=== PATIENT | female | born 1990 | race Caucasian/White ===

== ENCOUNTER 2018-08-25 08:00 | Outpatient (CLI) | payer OTHER ==
[2018-08-25 19:04] LABS: BASOPHILS % (AUTO) 0.5 %; EOSINOPHILS # (AUTO) 0.1 10^3/uL (0.0-0.7); EOSINOPHILS % (AUTO) 1.9 %; HGB - HEMOGLOBIN 13.3 g/dL (12.0-16.0); LYMPHOCYTES # (AUTO) 1.6 10^3/uL (1.5-3.5); LYMPHOCYTES % (AUTO) 26.2 %; MEAN CORPUSCULAR HEMOGLOBIN 30.1 pg (27.0-31.0); MEAN CORPUSCULAR HGB CONC 32.9 g/dL (32.0-36.0); MEAN CORPUSCULAR VOLUME 91.5 fL (81.0-99.0); MEAN PLATELET VOLUME 9.5 fL (7.9-10.8); MONOCYTES # (AUTO) 0.5 10^3/uL (0.0-1.0); MONOCYTES % (AUTO) 7.6 %; NEUTROPHILS # (AUTO) 3.8 10^3/uL (1.5-6.6); NEUTROPHILS % (AUTO) 63.8 %; PLT - PLATELET COUNT 160 10^3/uL (130-450); RED BLOOD COUNT 4.41 10^6/uL (4.20-5.40); RED CELL DISTRIBUTION WIDTH 13.7 % (12.0-15.0)
[2018-08-26 09:54] LABS: CARBON DIOXIDE - CO2 26 mmol/L (21-32); CHLORIDE 104 mmol/L (101-111); SODIUM 142 mmol/L (135-145)
[2018-08-26 10:00] LABS: BILIRUBIN,TOTAL 0.7 mg/dL (0.2-1.0); BUN - BLOOD UREA NITROGEN 18 mg/dL (6-20); CALCIUM 9.5 mg/dL (8.5-10.3); CREATININE 1.2 mg/dL (0.4-1.0); GFR - MDRD 54 (>89); GLUCOSE 83 mg/dL (70-100)
[2018-08-26 10:01] LABS: ALBUMIN 4.3 g/dL (3.2-5.5); ALBUMIN/GLOBULIN RATIO 1.5 (1.0-2.2); ALKALINE PHOSPHATASE 43 IU/L (42-121); ALT ALANINE AMINOTRANSFERASE 16 IU/L (10-60); AST ASPARTATE AMINOTRANSFERASE 23 IU/L (10-42); TOTAL PROTEIN 7.1 g/dL (6.7-8.2)
[2018-08-26 10:10] LABS: CHOL/HDL RATIO 3.1 (<4.4); CHOLESTEROL 156 mg/dL; HDL CHOLESTEROL 51 mg/dL; LDL CHOLESTEROL,CALCULATED 73 mg/dL; LDL/HDL RATIO 1.4 (<4.4); VLDL CHOLESTEROL 32 mg/dL
== END 2018-08-25 08:01 | disposition home or self-care (01) ==
LOC: LAB.WCP 08:00
PROVIDERS: ATTEND Physician Assistant
DX: Z00.00 Encounter for general adult medical examination without abnormal findings (principal); Z83.3 Family history of diabetes mellitus
CPT/HCPCS: 36415; 80053; 80061; 81599; 83036; 83721; 84443; 85025

== ENCOUNTER 2018-08-31 08:00 | Outpatient (CLI) | payer OTHER ==
[2018-08-31 19:38] LABS: CALCIUM 9.6 mg/dL (8.5-10.3); CREATININE 0.8 mg/dL (0.4-1.0)
== END 2018-08-31 08:01 | disposition home or self-care (01) ==
LOC: LAB.WCP 08:00
PROVIDERS: ATTEND Physician Assistant
DX: R79.89 Other specified abnormal findings of blood chemistry (principal)
CPT/HCPCS: 36415; 80048

== ENCOUNTER 2018-09-09 16:24 | Outpatient (CLI) | payer OTHER ==
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
== END 2018-09-09 16:25 | disposition home or self-care (01) ==
LOC: DI 16:24
PROVIDERS: ATTEND Physician Assistant
DX: G43.909 Migraine, unspecified, not intractable, without status migrainosus (principal); S15.20 Unspecified injury of external jugular vein; Z87.820 Personal history of traumatic brain injury
CPT/HCPCS: 70551; 93880

== ENCOUNTER 2019-06-03 14:22 | Outpatient (CLI) | payer OTHER ==
--- NOTE | 2019-06-04 06:46 | XRAY Report ---
Reason: WRIST PAIN, LEFT Procedure Date: 06/03/2019 Accession Number: [id number] / [id number] Procedure: XRN - Wrist 3 View LT CPT Code: Final Report FULL RESULT: EXAM: LEFT WRIST RADIOGRAPHY EXAM DATE: 06/03/2019 02:45 PM. CLINICAL HISTORY: WRIST PAIN, LEFT. COMPARISON: FOREARM LT 06/03/2019 2:47 PM. TECHNIQUE: 3 views. FINDINGS: Bones: Orthopedic fixation hardware at left distal radius without evidence of hardware failure. Evidence of healed distal radial and ulnar fractures. No definite acute fractures or suspicious bone lesions. Joints: No subluxation or dislocation. Mild widening of scapholunate distance. Soft Tissues: Possible mild soft tissue swelling. IMPRESSION: 1. No acute fracture. 2. Healed distal radial and ulnar fractures with ORIF of left distal radius. 3. Mild widening of the scapholunate distance, probably chronic. 4. Possible mild swelling. RADIA
--- NOTE | 2019-06-04 06:48 | XRAY Report ---
Reason: FOREARM PAIN, LEFT Procedure Date: 06/03/2019 Accession Number: [id number] / [id number] Procedure: XRN - Forearm LT CPT Code: Final Report FULL RESULT: EXAM: LEFT FOREARM RADIOGRAPHY EXAM DATE: 06/03/2019 02:45 PM. CLINICAL HISTORY: FOREARM PAIN, LEFT. COMPARISON: WRIST 3 VIEW LT 06/03/2019 2:50 PM. TECHNIQUE: 2 views. FINDINGS: Bones: No acute fractures or bone lesions. Healed distal radial and ulnar fractures with orthopedic fixation of distal radius. No evidence of hardware failure. Joints: Normal alignment at wrist and elbow. Possible mild radiocarpal joint space narrowing. Mild widening of scapholunate distance. Soft Tissues: Possible mild swelling. IMPRESSION: 1. No acute fractures. 2. Healed distal radial and ulnar fractures with orthopedic hardware at distal radius. 3. Mild widening of scapholunate distance and possible mild radiocarpal joint space narrowing. 4. Possible mild swelling. RADIA
== END 2019-06-03 14:23 | disposition home or self-care (01) ==
LOC: DI.N 14:22
PROVIDERS: ATTEND Physician Assistant
DX: M79.632 Pain in left forearm (principal); M25.532 Pain in left wrist

== ENCOUNTER 2020-08-07 08:00 | Outpatient (CLI) | payer BC ==
[2020-08-08 11:52] LABS: MUDS CUTOFF CONCENTRATIONS CUTOFF CONC BELOW:
[2020-08-08 12:02] LABS: BILIRUBIN,URINE NEGATIVE (NEGATIVE); GLUCOSE, URINE (UA) NEGATIVE (NEGATIVE); KETONES,URINE (UA) NEGATIVE (NEGATIVE); LEUKOCYTE ESTERASE, URINE SMALL (NEGATIVE); NITRITE,URINE NEGATIVE (NEGATIVE); OCCULT BLOOD,URINE NEGATIVE (NEGATIVE); PROTEIN,URINE NEGATIVE (NEGATIVE); UROBILINOGEN,URINE 0.2 (NORMAL) E.U./dL (NORMAL)
[2020-08-08 12:11] LABS: AMORPHOUS SEDIMENT,UR Marked /LPF; BACTERIA,URINE Moderate /HPF (None Seen); CLARITY,URINE CLOUDY (CLEAR); RBC,URINE 0-5 /HPF (0-5); SQUAMOUS EPITHELIAL CELL,UR FEW Squamous (<= Few); WBC,URINE 0-3 /HPF (0-5)
[2020-08-08 12:12] LABS: AMPHETAMINE SCREEN,URINE NEGATIVE (NEGATIVE); BARBITURATE SCREEN,UR NEGATIVE (NEGATIVE); BENZODIAZEPINES SCREEN, URINE NEGATIVE (NEGATIVE); COCAINE SCREEN URINE NEGATIVE (NEGATIVE); METHADONE SCREEN, URINE NEGATIVE (NEGATIVE); METHAMPHETAMINES SCREEN, URINE NEGATIVE (NEGATIVE); OPIATE SCREEN, URINE NEGATIVE (NEGATIVE); OXYCODONE SCREEN, URINE NEGATIVE (NEGATIVE); PROPOXYPHENE SCREEN, URINE NEGATIVE (NEGATIVE); THC CANNABINOID SCREEN, URINE NEGATIVE (NEGATIVE); TRICYCLIC ANTIDEPRESSANT,URINE NEGATIVE (NEGATIVE)
== END 2020-08-07 23:59 ==
LOC: LAB.R 08:00
PROVIDERS: ATTEND Nurse Practitioner Obstetrics & Gynecology
DX: Z32.01 Encounter for pregnancy test, result positive (principal)
CPT/HCPCS: 80306; 81001; 87086

== ENCOUNTER 2020-08-15 22:10 | Outpatient (CLI) | payer BC ==
[2020-08-15 23:21] LABS: BASOPHILS % (AUTO) 0.3 %; EOSINOPHILS # (AUTO) 0.1 10^3/uL (0.0-0.7); EOSINOPHILS % (AUTO) 1.2 %; HGB - HEMOGLOBIN 12.3 g/dL (12.0-16.0); LYMPHOCYTES # (AUTO) 1.6 10^3/uL (1.5-3.5); LYMPHOCYTES % (AUTO) 21.3 %; MEAN CORPUSCULAR HEMOGLOBIN 29.9 pg (27.0-31.0); MEAN CORPUSCULAR HGB CONC 34.2 g/dL (32.0-36.0); MEAN CORPUSCULAR VOLUME 87.6 fL (81.0-99.0); MEAN PLATELET VOLUME 10.4 fL (7.9-10.8); MONOCYTES # (AUTO) 0.5 10^3/uL (0.0-1.0); MONOCYTES % (AUTO) 7.2 %; NEUTROPHILS # (AUTO) 5.2 10^3/uL (1.5-6.6); NEUTROPHILS % (AUTO) 69.6 %; PLT - PLATELET COUNT 185 10^3/uL (130-450); RED BLOOD COUNT 4.11 10^6/uL (4.20-5.40); RED CELL DISTRIBUTION WIDTH 12.9 % (12.0-15.0); WHITE BLOOD COUNT 7.5 x10^3/uL (4.8-10.8)
--- NOTE | 2020-08-16 11:02 | Ultrasound Report ---
PROCEDURE: OB First Trimester INDICATIONS: POSITIVE TEST OUTSIDE/PRIOR DATING DATA: Last menstrual period (LMP): 06/10/2020. LMP-based estimated date of delivery (SHERRY): 03/17/2021. First dating scan (date and location): 08/15/2020. Estimated date of delivery (SHERRY) from first dating scan: 03/09/2021. The below data below was generated using the ultrasound SHERRY of 03/09/2021 TECHNIQUE: Real-time scanning was performed of the fetus and maternal pelvic organs, with image documentation. COMPARISON: None FINDINGS: Embryo: Single living intrauterine identified. pole is identified. [place]-rump length measures 3.6 cm corresponding to ultrasound estimated gestational age of 10 weeks 4 days. hear t rate measured at 160 bpm. Measurement variability in dating: +/- 4 weeks by LMP, +/- 7 days by mean sac diameter (use before 6 weeks gestation if crown-rump length not able to be measured), +/- 5 days by crown-rump length (6-12 weeks gestation). Maternal organs: Ovaries are sonographically normal. IMPRESSION: Single living intrauterine with ultrasound estimated gestational age of 10 weeks 4 days cor responding to ultrasound SHERRY of 03/09/2021. Reviewed by: Radha Negro MD, PhD on 08/16/2020 11:01 AM PDT Approved by: Radha Negro MD, PhD on 08/16/2020 11:01 AM PDT Station ID: [id number]
[2020-08-17 12:43] LABS: HEPATITIS B SURFACE ANTIGEN NON-REACTIVE (NON-REACTIVE); HEPATITIS C ANTIBODY NON-REACTIVE (NON-REACTIVE)
[2020-08-17 16:07] LABS: HIV AG/AB 4TH GEN NON-REACTIVE (NON-REACTIVE)
== END 2020-08-15 22:11 | disposition home or self-care (01) ==
LOC: DI 22:10 → LAB 22:11
PROVIDERS: ATTEND Nurse Practitioner Obstetrics & Gynecology
DX: Z36.89 Encounter for other specified antenatal screening (principal); Z32.01 Encounter for pregnancy test, result positive
CPT/HCPCS: 36415; 85025; 86592; 86762; 86787; 86803; 86850; 86900; 86901; 87340; 87389

== ENCOUNTER 2020-09-04 08:00 | Outpatient (CLI) | payer BC | END 2020-09-04 23:59 | disposition home or self-care (01) | LOC: LAB.R 08:00 | PROVIDERS: ATTEND Advanced Practice Midwife | DX: Z34.90 Encounter for supervision of normal pregnancy, unspecified, unspecified trimester (principal) | CPT/HCPCS: 87086 ==

== ENCOUNTER 2020-10-26 15:12 | Outpatient (CLI) | payer BC ==
--- NOTE | 2020-10-26 18:44 | Ultrasound Report ---
PROCEDURE: OB Detailed Eval INDICATIONS: SUPERVISION OF NORMAL OUTSIDE/PRIOR DATING DATA: Last menstrual period (LMP): 06/10/2020. LMP-based estimated date of delivery (SHERRY): 03/17/2021. First dating scan (date and location): 08/15/2020. Estimated date of delivery (SHERRY) from first dating scan: 03/09/2021. The below data below was generated using the SHERRY of 03/09/2021 TECHNIQUE: Real-time scanning was performed of the fetus, with image documentation and biometric measurements. Endovaginal scanning: None COMPARISON: None. FINDINGS: General: A single living intrauterine gestation is present. Presentation: Breech Placenta: Placental position is anterior, without previa. Amniotic fluid index: 17.2 cm, normal for gestational age. heart rate: 131 beats per minute. Maternal cervical canal: 6.3 cm long; normal length is 2.5 cm or more. biometrics: Biparietal diameter: 0.0 cm, 21 week 2 day Head circumference: 18.8 cm, 21 week 0 day Abdominal circumference: 16.3 cm, 21 week 3 day Femur length: 3.3 cm, 20 week 3 day Estimated gestational age from initial scan: 20 week 6 day Composite gestational age from present scan: 20 week 4 day Estimated weight and percentile: 389 g, 50th percentile Measurement variability in biometric dating: +/- 10 days from 12-20 weeks gestation, +/- 2 weeks from 20-30 weeks gestation, +/- 3 weeks at 30 weeks gestation or later. Anatomic survey: Neuro: Ventricles are normal at less than 10 mm. Cisterna magna is normal at 3-11 mm. Cerebellum i s normal in size and morphology. Nuchal skin fold: Normal at less than 6 mm between 14 and 20 weeks gestational age. Face: Nose and lips, facial profile are normal. Spine: No evidence for spina bifida. Heart: 4-chambered heart is present, with normal ventricular outflow tracts. Diaphragm: Diaphragm is intact. Stomach: Left-sided stomach is present. Kidneys: No hydronephrosis. Normal is less than 5 mm in 2nd trimester, less than 7 mm in 3rd trimester. Cord: 3 vessel cord has orthotopic insertion. Bladder: Normal in size. Extremities: All 4 extremities are visualized. IMPRESSION: Single live intrauterine consistent with a 20 week 4 day gestation by current ultrasound Reviewed by: Fred Bowles MD on 10/26/2020 5:43 PM MELINDA Approved by: Fred Bowles MD on 10/26/2020 5:43 PM MELINDA Station ID: [id number]
== END 2020-10-26 15:13 | disposition home or self-care (01) ==
LOC: DI 15:12
PROVIDERS: ATTEND Nurse Practitioner Obstetrics & Gynecology
DX: Z34.92 Encounter for supervision of normal pregnancy, unspecified, second trimester (principal); Z36.89 Encounter for other specified antenatal screening

== ENCOUNTER 2020-12-18 13:45 | Outpatient (CLI) | payer BC ==
[2020-12-18 15:02] LABS: HCT - HEMATOCRIT 31.8 % (37.0-47.0); HGB - HEMOGLOBIN 10.5 g/dL (12.0-16.0); MEAN CORPUSCULAR VOLUME 90.9 fL (81.0-99.0); MEAN PLATELET VOLUME 9.8 fL (7.9-10.8); RED BLOOD COUNT 3.5 10^6/uL (4.20-5.40); RED CELL DISTRIBUTION WIDTH 13.1 % (12.0-15.0); WHITE BLOOD COUNT 8.3 x10^3/uL (4.8-10.8)
== END 2020-12-18 13:46 | disposition home or self-care (01) ==
LOC: LAB 13:45
PROVIDERS: ATTEND Nurse Practitioner Obstetrics & Gynecology
DX: Z34.90 Encounter for supervision of normal pregnancy, unspecified, unspecified trimester (principal); Z36.89 Encounter for other specified antenatal screening
CPT/HCPCS: 36415; 82950; 85027

== ENCOUNTER 2021-02-12 13:00 | Outpatient (CLI) | payer BC | END 2021-02-12 23:59 | disposition home or self-care (01) | LOC: LAB 13:00 | PROVIDERS: ATTEND Nurse Practitioner Obstetrics & Gynecology | DX: Z36.85 Encounter for antenatal screening for Streptococcus B (principal) | CPT/HCPCS: 87797 ==

== ENCOUNTER 2021-03-02 07:33 | Inpatient (IN) | payer BC ==
[2021-03-02] MEDS ORDERED: TRANEXAMIC ACID IN NACL 1,000 MG/100 ML BAG IV PRN (09:17)
[2021-03-02] MEDS ORDERED: SODIUM CHLORIDE FLUSH 0.9% 10 ML SYRINGE IVP PRN (09:17)
[2021-03-02] MEDS ORDERED: miSOPROStoL 200 MCG TABLET BC PRN (09:17)
[2021-03-02] MEDS ORDERED: ONDANSETRON ODT 4 MG TABLET TL PRN (09:17)
[2021-03-02] MEDS ORDERED: OXYTOCIN 10 UNIT/ML VIAL IM PRN (09:17)
[2021-03-02] MEDS ORDERED: METHYLERGONOVINE 0.2 MG/ML VIAL IM PRN (09:17)
[2021-03-02] MEDS ORDERED: CARBOPROST TROMETHAMINE 250 MCG/ML AMP IM PRN (09:17)
[2021-03-02] MEDS ORDERED: LIDOCAINE-MPF 1% 30 ML VIAL ID PRN (09:17)
[2021-03-02] MEDS ORDERED: OXYTOCIN/SODIUM CHLORIDE 500 ML IV PRN (09:17)
[2021-03-02 09:30] LABS: BASOPHILS % (AUTO) 0.2 %; EOSINOPHILS # (AUTO) 0.1 10^3/uL (0.0-0.7); EOSINOPHILS % (AUTO) 0.9 %; HCT - HEMATOCRIT 34.8 % (37.0-47.0); HGB - HEMOGLOBIN 11.4 g/dL (12.0-16.0); LYMPHOCYTES % (AUTO) 17.3 %; MEAN CORPUSCULAR HEMOGLOBIN 28.4 pg (27.0-31.0); MEAN CORPUSCULAR HGB CONC 32.8 g/dL (32.0-36.0); MEAN CORPUSCULAR VOLUME 86.6 fL (81.0-99.0); MEAN PLATELET VOLUME 11.7 fL (7.9-10.8); MONOCYTES # (AUTO) 0.6 10^3/uL (0.0-1.0); MONOCYTES % (AUTO) 9.9 %; NEUTROPHILS # (AUTO) 4.1 10^3/uL (1.5-6.6); NEUTROPHILS % (AUTO) 70.7 %; PLT - PLATELET COUNT 140 10^3/uL (130-450); RED BLOOD COUNT 4.02 10^6/uL (4.20-5.40); RED CELL DISTRIBUTION WIDTH 14.8 % (12.0-15.0); WHITE BLOOD COUNT 5.8 x10^3/uL (4.8-10.8)
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
[2021-03-02] MEDS: miSOPROStoL 100 MCG TABLET BC SCH ×4 (09:54→21:53)
[2021-03-02] MEDS ORDERED: LACTATED RINGERS 1,000 ML IV SCH (10:00)
[2021-03-02] MEDS ORDERED: SODIUM CHLORIDE FLUSH 0.9% 10 ML SYRINGE IVP SCH (17:00)
[2021-03-02] MEDS ORDERED: ZOLPIDEM 5 MG TABLET PO PRN (18:29)
[2021-03-03] MEDS: miSOPROStoL 100 MCG TABLET BC SCH ×2 (02:03→06:20)
[2021-03-03] MEDS ORDERED: OXYTOCIN/SODIUM CHLORIDE 500 ML IV SCH (10:21)
[2021-03-03] MEDS ORDERED: AMPICILLIN 2 GM in SODIUM CHLORIDE 0.9% MINIBAG 100 ML IV ONE (10:34)
--- NOTE | 2021-03-03 10:43 | PROVIDER PROGRESS NOTE ---
Labor Progress Note - Uterine Monitoring Uterine Monitoring Mode: positive: External toco Contraction Frequency (min/apart): 2-4 Contraction Intensity: positive: Mild Uterine Resting Tone: positive: Soft - Monitoring Monitor Mode: positive: External ultrasound Heart Rate Baseline: 130 Heart Rate Variability: positive: Moderate (6-25 bmp) Accelerations: positive: Present, 15x15 Decelerations: positive: None Strip Review: positive: Category I - Vaginal Exam Dilation (in cm): 2 Effacement (%): 50 Station: -3 Cervical Position: Posterior - Labor Progress Note Labor Progress Note/Additional Text: S: Feeling some discomfort with contractions. Last night was feeling them more in her back but she states they have now moved more towards her front. She desires an epidural for pain management at some point but she is feeling like she is coping just fine without an epidural at present time. Her is supportive at the bedside. O: FHR baseline 130s, moderate variability, + accels, no decels Contractions palpate mild every 2-4 minutes with soft resting tone SVE 2/50/-3, posterior. Vertex. Intact membranes. Cervical ripening balloon placed with 60cc intrauterine, and 60cc vaginal - pt tolerated placement well. A: 30yo @ 39.1wks gestation Impaired 1 hour GTT with unknown GDM secondary to no blood glucose monitoring and declination of 3 hour GTT Medical induction of labor. S/p 6 doses of 50mcg BC misoprostol GBS POSITIVE P: Initiation pitocin for induction of labor with titration per protocol. Initiation Ampicillin for GBS prophylaxis per protocol. Continuous monitoring Jacuzzi PRN. Nitrous oxide PRN. Encouraged ambulation and frequent position changes. Epidural per maternal request. Anticipate .
[2021-03-03] MEDS ORDERED: ROPIVACAINE 0.2% 200 MG/100 ML BAG EP ONE (12:34)
[2021-03-03] MEDS ORDERED: diphenhydrAMINE INJ 50 MG/ML VIAL IVP PRN (13:15)
[2021-03-03] MEDS ORDERED: ROPIVACAINE 0.2% 200 MG/100 ML BAG EP PRN (13:15)
[2021-03-03] MEDS ORDERED: ONDANSETRON 4 MG/2 ML VIAL IVP PRN ×2 (13:15→18:03)
[2021-03-03] MEDS ORDERED: METOCLOPRAMIDE 10 MG/2 ML VIAL IVP PRN ×2 (13:15→18:03)
[2021-03-03] MEDS ORDERED: NALBUPHINE 10 MG/ML AMP IVP PRN (13:15)
[2021-03-03] MEDS ORDERED: ePHEDrine 50 MG/ML VIAL IVP PRN ×2 (13:15→18:03)
[2021-03-03] MEDS ORDERED: NALOXONE 0.4 MG/ML VIAL IVP PRN ×2 (13:15→18:03)
--- NOTE | 2021-03-03 13:19 | ANESTHESIA ---
Pre-Anesthesia VS, & Labs - Diagnosis labor induction - Procedure labor epidural Vital Signs: Temp Pulse Resp BP Pulse Ox 36.4 C L 95 18 127/56 L 97 03/03/21 06:15 03/03/21 06:15 03/03/21 06:15 03/03/21 06:15 03/03/21 06:15 Height: 5 ft 6 in Weight (kg): 101.151 kg Body Mass Index: 35.9 BMI Classification: Obese - NPO >8 hours - Is Patient ?: Yes - Lab Results Current Lab Results: Laboratory Tests 03/02/21 08:15: WBC 5.8, RBC 4.02 L, Hgb 11.4 L, Hct 34.8 L, MCV 86.6, MCH 28.4, MCHC 32.8, RDW 14.8, Plt Count 140, MPV 11.7 H, Neut # (Auto) 4.1, Lymph # (Auto) 1.0 L, Nelson # (Auto) 0.6, Eos # (Auto) 0.1, Baso # (Auto) 0.0, Absolute Nucleated RBC 0.00, Nucleated RBC % 0.0 03/02/21 08:15: Blood Type A POSITIVE, Antibody Screen NEGATIVE Fish Bones: 03/02/21 08:15 Home Medications and Allergies Active Medications Carboprost Tromethamine (Carboprost Tromethamine 250 Mcg/Ml Amp) 250 mcg IM Q15M PRN PRN Reason: Step 4: Hemorrhage protocol Stop: 03/07/21 09:18 Lactated Ringer's (Lr) 1,000 mls @ 100 mls/hr IV .Q10H ÁLVARO Last Infusion: 03/03/21 12:51 Dose: 100 mls/hr Documented by: Oxytocin/Sodium Chloride (Pitocin/Sodium Chloride) 500 mls @ 999 mls/hr IV PRN PRN; Protocol PRN Reason: POST- HEMORR PREVENTION Stop: 03/07/21 09:18 Tranexamic Acid (Tranexamic 1,000 Mg/100ml-Nacl) 1,000 mg in 100 mls @ 600 mls/hr IV .ONCE PRN PRN Reason: EBL >1200mL and within 3hr Stop: 03/07/21 09:18 Oxytocin/Sodium Chloride (Pitocin/Sodium Chloride) 500 mls @ 1 mls/hr IV TITR ÁLVARO; Protocol Last Admin: 03/03/21 10:53 Dose: 1 milliunit/min, 1 mls/hr Documented by: Ampicillin Sodium 1 gm/ Sodium (Chloride) 100 mls @ 200 mls/hr IV Q4HR [facility] Lidocaine HCl (Lidocaine-Mpf 1% 30 Ml Vial) 30 ml ID .ONCE PRN PRN Reason: PERINEAL REPAIR Stop: 03/07/21 09:18 Methylergonovine Maleate (Methylergonovine 0.2 Mg/Ml Vial) 0.2 mg IM .ONCE PRN PRN Reason: Step 2: Hemorrhage protocol Stop: 03/07/21 09:18 Misoprostol (Misoprostol 200 Mcg Tablet) 800 mcg BC .ONCE PRN PRN Reason: Step 3: Hemorrhage protocol Stop: 03/07/21 09:18 Misoprostol (Misoprostol 100 Mcg Tablet) 50 mcg BC Q4HR [facility] Last Admin: 03/03/21 06:20 Dose: 50 mcg Documented by: Ondansetron HCl (Ondansetron Odt 4 Mg Tablet) 4 mg TL Q4HR PRN PRN Reason: Nausea / Vomiting Oxytocin (Oxytocin 10 Unit/Ml Vial) 10 unit IM .ONCE PRN PRN Reason: Step one: If no IV access Stop: 03/07/21 09:18 Sodium Chloride (Sodium Chloride Flush 0.9% 10 Ml Syringe) 10 ml IVP 0100,0900,1700 [facility] Last Admin: 03/02/21 19:30 Dose: 10 ml Documented by: Sodium Chloride (Sodium Chloride Flush 0.9% 10 Ml Syringe) 10 ml IVP PRN PRN PRN Reason: NEEDED PER PROVIDER ORDERS Zolpidem Tartrate (Zolpidem 5 Mg Tablet) 5 mg PO QPM PRN PRN Reason: Insomnia Allergies/Adverse Reactions: Allergies Allergy/AdvReac Type Severity Reaction Status Date / Time No Known Drug Allergies Allergy Verified 01/19/17 13:41 Anes History & Medical History - Anesthetic History Anesthesia Complications: reports: No previous complications - Medical History Cardiovascular: reports: None Pulmonary: reports: None Smoking Status: Never smoker History of Cancer?: No - Surgical History Gynecologic: reports: Dilation and currettage - Obstetrical History : 3 Parity: 1 Events: reports: None Complications: reports: None Exam General: Alert Dental: WNL Mouth Opening: Greater than 4 Fingerbreadths Neck Mobility: Normal Mallampati classification: II Thyromental Distance: greater than 6 cm Respiratory: Lungs clear Cardiovascular: Regular rate Plan Anesthesia Type: Epidural Consent for Procedure(s) Verified and Reviewed: Yes Code Status: Attempt Resuscitation ASA classification: 2-Mild systemic disease Is this case an emergency?: No
[2021-03-03] MEDS ORDERED: AMPICILLIN 1 GM in SODIUM CHLORIDE 0.9% MINIBAG 100 ML IV SCH (14:35)
[2021-03-03] MEDS ORDERED: TERBUTALINE 1 MG/ML VIAL SUBQ ONE ×2 (16:54→17:03)
[2021-03-03] MEDS ORDERED: ceFAZolin 1 GM VIAL ONE (17:09)
[2021-03-03] MEDS ORDERED: LACTATED RINGERS 1,000 ML ONE (17:12)
[2021-03-03] MEDS ORDERED: METHYLERGONOVINE 0.2 MG/ML VIAL ONE (17:25)
[2021-03-03] MEDS ORDERED: CARBOPROST TROMETHAMINE 250 MCG/ML AMP IM ONE (17:25)
[2021-03-03] MEDS ORDERED: ROCURONIUM 50 MG/5 ML VIAL ONE (17:27)
[2021-03-03] MEDS ORDERED: fentaNYL 100 MCG/2 ML VIAL ONE (17:27)
[2021-03-03] MEDS ORDERED: PROPOFOL 200 MG/20 ML VIAL IVP ONE (17:27)
[2021-03-03] MEDS ORDERED: OXYTOCIN 10 UNIT/ML VIAL ONE ×2 (17:27→17:53)
[2021-03-03] MEDS ORDERED: ePHEDrine 50 MG/ML VIAL IVP ONE (17:34)
[2021-03-03] MEDS ORDERED: ACETAMINOPHEN 1,000 MG/100 ML 100 ML IV ONE (17:55)
[2021-03-03] MEDS ORDERED: KETOROLAC 30 MG/ML VIAL ONE (17:55)
[2021-03-03] MEDS ORDERED: ONDANSETRON 4 MG/2 ML VIAL ONE ×2 (17:55→19:06)
[2021-03-03] MEDS ORDERED: MORPHINE 2 MG/ML CARPUJECT IVP PRN (18:03)
[2021-03-03] MEDS ORDERED: HYDROmorphone 0.5 MG/0.5 ML SYRINGE IVP PRN (18:03)
[2021-03-03] MEDS ORDERED: fentaNYL 100 MCG/2 ML VIAL IVP PRN (18:03)
[2021-03-03] MEDS ORDERED: BUPIVACAINE 0.5% PF 10 ML VIAL ONE (18:03)
[2021-03-03] MEDS ORDERED: ATROPINE ABBOJECT 1 MG/10 ML SYRINGE IVP PRN (18:03)
[2021-03-03] MEDS ORDERED: BUPIVACAINE 0.5% PF 10 ML VIAL SUBQ ONE (18:19)
[2021-03-03] MEDS ORDERED: LACTATED RINGERS 300 ML IV ONE (18:39)
[2021-03-03] MEDS ORDERED: SODIUM CHLORIDE FLUSH 0.9% 10 ML SYRINGE IVP PRN (18:43)
[2021-03-03] MEDS ORDERED: ONDANSETRON ODT 4 MG TABLET TL PRN (18:43)
[2021-03-03] MEDS ORDERED: OXYTOCIN/SODIUM CHLORIDE 500 ML IV PRN (18:43)
[2021-03-03] MEDS ORDERED: LACTATED RINGERS 1,000 ML IV ONE (18:50)
--- NOTE | 2021-03-03 18:57 | XRAY Report ---
PROCEDURE: Abdomen 1 View X-Ray INDICATIONS: POST TECHNIQUE: 1 view of the abdomen were acquired. COMPARISON: None. FINDINGS: Surgical changes and devices: Curvilinear radiodensity projects over the spine and left abdomen, whic h may reflect the patient's epidural. Bowel: No pneumoperitoneum. Nonspecific bowel gas pattern. Soft tissues: No masses; visualized solid organ contours appear normal in size. No suspicious abdom inal calcifications. Bones: No suspicious bony abnormalities. Partially imaged left femoral hardware. IMPRESSION: Curvilinear radiodensity projecting over the spine and left abdomen, likely reflecting t he patient's epidural. Reviewed by: Osmin Shipley MD on 03/03/2021 6:56 PM PST Approved by: Osmin Shipley MD on 03/03/2021 6:56 PM PST Station ID: [id number]
[2021-03-03] MEDS ORDERED: LACTATED RINGERS 1,000 ML IV SCH (19:00)
[2021-03-03] MEDS ORDERED: HYDROmorphone 1 MG/ML CARPUJECT ONE (19:12)
--- NOTE | 2021-03-03 20:02 | ANESTHESIA POST OP EVALUATION ---
Anesthesia Post Eval - Post Anesthesia Eval Vitals: Last Vital Signs Temp 36.5 C 03/03/21 19:51 Pulse 88 03/03/21 19:51 Resp 15 03/03/21 19:51 BP 134/77 H 03/03/21 19:51 Pulse Ox 98 03/03/21 19:51 CV Function Including HR & BP: Stable Pain Control: Satisfactory Nausea & Vomiting: Negative Mental Status: Baseline Respiratory Status: Airway Patent Hydration Status: Satisfactory Anesthesia Complications: None
--- NOTE | 2021-03-03 20:40 | OPERATIVE REPORT ---
Operative Report - General Admit Date: 03/02/21 Planned Procedure: Primary low transverse section. Pre-Op Diagnosis: Prolapsed umbilical cord Procedure Performed: Primary low transverse section Post Op Diagnosis: Same, status post low transverse section - Procedure Note Primary Surgeon: Calvin Vences MD Secondary Surgeon: ELDA Shrestha Anesthesia Provider: Maggi Melgar CRNA Anesthesia Technique: General mask Pathology: None Estimated Blood Loss (mL): 900 Findings: Normal appearing uterus, fallopian tubes, and ovaries. Complications: None - Other Other Information/Narrative: Patient was a 30-year-old -0-1-1 who presented at 39 weeks gestation for elevated 1 hour GTT who declined 3-hour GTT and blood and umbilical cord was noted glucose monitoring. Induction, she was checked and found to be 5 cm dilated, but that point and umbilical cord was noted and subsequently had rupture of membranes spontaneously. ELDA Shrestha remain at bedside elevating head off the cord and I was called for emergent section. Upon my arrival, verbal consent was obtained for section. The patient stated understanding and desired to proceed. All questions were answered posed by patient. In the OR, 2 grams of cefazolin IV was administered. The patient did not have adequate anesthesia, so general anesthesia was obtained. Due to the timing, Betadine was splashed on the abdomen then was draped in the usual fashion in the dorsal supine position with a leftward tilt displacing the uterus. Durbin was draining to gravity. SCDs were on bilateral lower extremities. A pfannenstiel skin incision was then made with the scalpel and carried through to the underlying layer of fascia. The fascia was incised in the midline and the incision extended laterally bluntly. The muscles were bluntly and the peritoneum was entered bluntly. No bladder flap was created. The incision was carried down to the uterus which was incised with a scalpel in a transverse fashion. It was then extended bluntly laterally. Minimal amount of clear fluid was noted. The fetus was in a cephalic presentation. The infants head delivered atraumatically. The anterior shoulders were delivered followed by the posterior shoulders then the remainder of the body. The infants mouth and nose were bulb suctioned. The umbilical cord was clamped times two and cut. The infant was taken to the warmer for evaluation by the special duty nurse. Cord blood gases were obtained. The placenta was removed with gentle traction. 20 units of oxytocin were added to IVF and allowed to run freely. The uterus was exteriorized and cleared of all clots and debris. The uterine incision was inspected and found to be without any extensions and was repaired with 0 Vicryl in a running, locked fashion. A second imbricating layer was performed. Upon inspection, the repaired hysterotomy was found to be hemostatic. The uterus was firm and returned to the abdomen. The gutters were cleared of all clots and debris. The muscles were reapproximated with 2-0 Vicryl. The fascia was reapproximated with 0 Vicryl in a running fashion. The subcutaneous tissue was closed with 2-0 Vicryl. The skin was closed in a subcuticular fashion with 4-0 Vicryl. The patient tolerated the procedure well. As this was an emergent case and ini tial counts were not completed, a postoperative radiograph was taken that showed no retained instruments or sponges. The patient was taken to the recovery room in stable condition. weight 3913 g.
[2021-03-04] MEDS: KETOROLAC 30 MG/ML VIAL IVP SCH ×4 (00:34→18:52)
[2021-03-04] MEDS ORDERED: SODIUM CHLORIDE FLUSH 0.9% 10 ML SYRINGE IVP SCH (01:00)
[2021-03-04] MEDS: ACETAMINOPHEN 500 MG TABLET PO SCH ×3 (02:04→19:02)
[2021-03-04] MEDS: LACTATED RINGERS 1,000 ML IV SCH ×2 (04:39→16:46)
[2021-03-04 05:53] LABS: BASOPHILS % (AUTO) 0.3 %; HCT - HEMATOCRIT 22.1 % (37.0-47.0); HGB - HEMOGLOBIN 7.4 g/dL (12.0-16.0); LYMPHOCYTES % (AUTO) 12.4 %; MEAN CORPUSCULAR HEMOGLOBIN 29.2 pg (27.0-31.0); MEAN CORPUSCULAR HGB CONC 33.5 g/dL (32.0-36.0); MEAN CORPUSCULAR VOLUME 87.4 fL (81.0-99.0); MEAN PLATELET VOLUME 10.6 fL (7.9-10.8); MONOCYTES # (AUTO) 0.7 10^3/uL (0.0-1.0); MONOCYTES % (AUTO) 8.6 %; NEUTROPHILS # (AUTO) 6.2 10^3/uL (1.5-6.6); NEUTROPHILS % (AUTO) 78.1 %; PLT - PLATELET COUNT 110 10^3/uL (130-450); RED BLOOD COUNT 2.53 10^6/uL (4.20-5.40); RED CELL DISTRIBUTION WIDTH 14.7 % (12.0-15.0); WHITE BLOOD COUNT 7.9 x10^3/uL (4.8-10.8)
--- NOTE | 2021-03-04 07:35 | PROVIDER PROGRESS NOTE ---
Subjective - Prog Note Date Prog Note Date: 03/04/21 Prog Note Time: 07:33 - Subjective Subjective: Subjective Patient reports she is doing well. Lochia appropriate. Denies heavy bleeding. Has not been up for ambulation. Pelvic and abdominal pain well-controlled. Tolerating oral intake. Diet: Regular. Durbin remains in place Passing flatus. Denies BM. Patient is bonding with baby in room Breast feeding going well. Denies feeling lightheaded, dizzy or excessively fatigued. Objective General: Alert, oriented, no apparent distress. Cardiovascular: Regular rate. Regular rhythm. No murmur. Lungs: Clear to auscultation. Good air movement. No crackles or wheezes Abdomen: Uterus firm. Below umbilicus. Normal active bowel sounds. No guarding or rebound. Incision: Bandage in place. Extremities: Normal pedal pulses. No edema. No cords. Assessment and Plan day 1. -Routine care -Anticipate discharge in 1 to 2 days -Continue oral antibiotics for 2 days -Discussed surgery with patient this morning. -Encouraged ambulation and pain control today. Acute blood loss anemia -Patient had approximately 900 mL of blood loss during surgery. -Hemoglobin went from 11.4-7.4. -No issue so far, but patient has not been ambulating. Will assess for symptomatic anemia and attempt fluid resuscitation versus blood administration. Objective - Vital Signs/Intake & Output Vital Signs: Vital Signs x48h Temp Pulse Resp BP Pulse Ox 03/04/21 05:15 97.9 F 94 14 112/55 L 98 03/04/21 00:38 98.2 F 95 20 120/58 L 97 Intake & Output: Intake & Output 03/01/21 03/02/21 03/03/21 03/04/21 23:59 23:59 23:59 23:59 Intake Total 841.317 360 Output Total 230 1817 Balance 611.317 -5217 - Lab Results Fish Bones: 03/04/21 05:40 Other Labs: Lab Results x24hrs 03/04/21 Range/Units 05:40 WBC 7.9 (4.8-10.8) x10^3/uL RBC 2.53 L (4.20-5.40) 10^6/uL Hgb 7.4 L (12.0-16.0) g/dL Hct 22.1 L (37.0-47.0) % MCV 87.4 (81.0-99.0) fL MCH 29.2 (27.0-31.0) pg MCHC 33.5 (32.0-36.0) g/dL RDW 14.7 (12.0-15.0) % Plt Count 110 L (130-450) 10^3/uL MPV 10.6 (7.9-10.8) fL Neut # (Auto) 6.2 (1.5-6.6) 10^3/uL Lymph # (Auto) 1.0 L (1.5-3.5) 10^3/uL [place] # (Auto) 0.7 (0.0-1.0) 10^3/uL Eos # (Auto) 0.0 (0.0-0.7) 10^3/uL Baso # (Auto) 0.0 (0.0-0.1) 10^3/uL Absolute Nucleated RBC 0.00 x10^3/uL Nucleated RBC % 0.0 /100WBC
[2021-03-04] MEDS: metroNIDAZOLE 250 MG TABLET PO SCH ×3 (08:15→17:32)
[2021-03-04] MEDS: SIMETHICONE CHEW 80 MG TABLET PO PRN ×2 (08:15→23:58)
[2021-03-04] MEDS: cephALEXin 250 MG CAPSULE PO SCH ×3 (08:17→23:59)
[2021-03-04] MEDS: DOCUSATE SODIUM 100 MG CAPSULE PO SCH ×2 (08:18→23:58)
[2021-03-04] MEDS ORDERED: SODIUM CHLORIDE 0.9% 500 ML IV ONE (13:00)
[2021-03-04 18:06] LABS: BASOPHILS % (AUTO) 0.1 %; EOSINOPHILS % (AUTO) 0.3 %; HGB - HEMOGLOBIN 7.9 g/dL (12.0-16.0); LYMPHOCYTES # (AUTO) 0.8 10^3/uL (1.5-3.5); LYMPHOCYTES % (AUTO) 10.4 %; MEAN CORPUSCULAR HEMOGLOBIN 29.3 pg (27.0-31.0); MEAN CORPUSCULAR HGB CONC 32.9 g/dL (32.0-36.0); MEAN CORPUSCULAR VOLUME 88.9 fL (81.0-99.0); MEAN PLATELET VOLUME 10.8 fL (7.9-10.8); MONOCYTES # (AUTO) 0.6 10^3/uL (0.0-1.0); MONOCYTES % (AUTO) 7.4 %; NEUTROPHILS # (AUTO) 6.5 10^3/uL (1.5-6.6); NEUTROPHILS % (AUTO) 80.9 %; PLT - PLATELET COUNT 124 10^3/uL (130-450); RED CELL DISTRIBUTION WIDTH 15.1 % (12.0-15.0)
[2021-03-04] MEDS ORDERED: CYANOCOBALAMIN 1,000 MCG/ML VIAL IM ONE (18:18)
[2021-03-04] MEDS: IBUPROFEN 600 MG TABLET PO SCH (19:01)
--- NOTE | 2021-03-04 19:23 | PROVIDER PROGRESS NOTE ---
Subjective - Prog Note Date Prog Note Date: 03/04/21 Prog Note Time: 19:20 - Subjective Subjective: Patient is POD#1 s/p emergent LTCS for cord prolapse Had marked drop in H/H this am. Dizziness limiting ambulation this am and marked increase in HR when moving form sitting to standing. Has received 1 unit PRBC, well tolerated. Feels "much better" post -transfusion although rise was not quite appropriate. has had Durbin removed and voided. Tolerating po. Pain managed on po pain meds. Feels she is doing well. Feels she has processed the trauma of the delivery well. Objective - Vital Signs/Intake & Output Reviewed Vital Signs: Yes Vital Signs: Vital Signs x48h Temp Pulse Pulse Resp BP BP Pulse Ox 03/04/21 17:01 98.1 F 99 16 123/66 99 03/04/21 16:31 103 H 118/65 03/04/21 16:00 97.9 F 105 H 14 121/62 03/04/21 15:46 98 117/59 L 03/04/21 15:31 99 117/55 L 03/04/21 15:16 92 112/56 L 03/04/21 15:01 98.1 F 94 16 109/54 L 03/04/21 14:46 96 111/61 03/04/21 14:31 94 115/54 L 03/04/21 14:16 96 116/54 L 03/04/21 14:12 98.6 F 103 H 16 114/63 03/04/21 14:03 98.2 F 105 H 16 115/59 L 03/04/21 13:53 98.1 F 107 H 16 111/58 L 03/04/21 11:35 98.1 F 98 16 118/59 L 99 Intake & Output: Intake & Output 03/01/21 03/02/21 03/03/21 03/04/21 23:59 23:59 23:59 23:59 Intake Total 608.039 2169.333 Output Total 230 3252 Balance 611.317 16.333 - Objective General Appearance: positive: No acute distress Respiratory: positive: No respiratory distress Cardiovascular: positive: Other (RR) Peripheral Pulses: 2+ Popliteal (R) Abdomen: positive: Other (soft, appropriately tender. FF below umbi. Dressing CDI) Skin: positive: Pallor Extremities: positive: Non-tender, No pedal edema Neurologic/Psychiatric: positive: Oriented x3 - Lab Results Fish Bones: 03/04/21 17:59 Other Labs: Lab Results x24hrs 03/04/21 03/04/21 03/02/21 Range/Units 17:59 05:40 08:15 WBC 8.0 7.9 (4.8-10.8) x10^3/uL RBC 2.70 L 2.53 L (4.20-5.40) 10^6/uL Hgb 7.9 L 7.4 L (12.0-16.0) g/dL Hct 24.0 L 22.1 L (37.0-47.0) % MCV 88.9 87.4 (81.0-99.0) fL MCH 29.3 29.2 (27.0-31.0) pg MCHC 32.9 33.5 (32.0-36.0) g/dL RDW 15.1 H 14.7 (12.0-15.0) % Plt Count 124 L 110 L (130-450) 10^3/uL MPV 10.8 10.6 (7.9-10.8) fL Neut # (Auto) 6.5 6.2 (1.5-6.6) 10^3/uL Lymph # (Auto) 0.8 L 1.0 L (1.5-3.5) 10^3/uL [place] # (Auto) 0.6 0.7 (0.0-1.0) 10^3/uL Eos # (Auto) 0.0 0.0 (0.0-0.7) 10^3/uL Baso # (Auto) 0.0 0.0 (0.0-0.1) 10^3/uL Absolute Nucleated RBC 0.00 0.00 x10^3/uL Nucleated RBC % 0.0 0.0 /100WBC Blood Type A POSITIVE Antibody Screen NEGATIVE Crossmatch IS Only See Detail Assessment/Plan - Problem List (1) delivery delivered Impression: POD#1: Patient is doing well post-transfusion -Encourage ambulation -pain well managed -Routine post op care -Cont inpatient care (2) Acute blood loss anemia Impression: Patient doing well after transfusion with 1 unit PRBCs -IV iron ordered for tomorrow am -B12 injection this pm -Will DC on oral iron
--- NOTE | 2021-03-04 23:44 | Discharge Plan ---
Discharge Plan Problem Reviewed?: Yes Disposition: 01 Home, Self Care Condition: Good Diet: Regular Activity Restrictions: Additional Comments (see below) Shower Restrictions: Yes (see below) Driving Restrictions: Yes (see below) Additional Instructions or Follow Up instructions: PELVIC REST: Nothing in the vagina for 6 weeks: No intercourse, tampons, douching. You are at high risk of uterine infection during this time frame. WARNING SIGNS: Call for: -Fever greater than 100.5 -Pain that does not improve with pain medication -Heavy bleeding in which you are soaking a pad an hour for 2 hours in a row -Incision becomes hot, hard, red, starts to open, or leaks foul smelling fluid -Pain or swelling in one leg and not the other +/- shortness of breath or chest pain LIFTING: No lifting more than 10# for 4 weeks DRIVING: No driving while on narcotics BATHING/WOUND CARE: Ok to shower. Let water run over the incision. Do not soap, scrub, or apply lotion. Pat dry with a clean towel or naresh a behavioral science chair. The surgical stickers will start to peel off and you can remove them when they do. Otherwise, the provider will remove them at your one week follow-up appointment. OK to use an unscented sanitary napkin or clean washcloth to keep the incision dry if the belly folds over the incision. MEDICATIONS: Ibuprofen 600 mg by mouth every 6 hours as needed for pain Acetaminophen 500-1000 mg by mouth every 8 hours as needed for pain Docusate 100-200 mg by mouth twice a day as needed for constipation Oxycodone 5 mg by mouth every 4 hours as needed for pain Iron gluconate 324 mg by mouth twice a day Vitamin C 250 mg by mouth twice a day with iron No Smoking: If you smoke, Please STOP! Call for help. Follow-up with: Calvin Vences MD [Provider Admit Priv/Credential] -
[2021-03-05] MEDS: LACTATED RINGERS 1,000 ML IV SCH
[2021-03-05] MEDS: oxyCODONE 5 MG TABLET PO PRN ×2 (05:02→12:35)
[2021-03-05] MEDS: ACETAMINOPHEN 500 MG TABLET PO SCH ×2 (05:12→15:00)
[2021-03-05] MEDS: IBUPROFEN 600 MG TABLET PO SCH ×2 (05:12→11:39)
[2021-03-05] MEDS ORDERED: FERRIC GLUCONATE 125 MG in SODIUM CHLORIDE 0.9% 100ML 100 ML IV ONE (08:00)
[2021-03-05] MEDS: cephALEXin 250 MG CAPSULE PO SCH (08:18)
[2021-03-05] MEDS: DOCUSATE SODIUM 100 MG CAPSULE PO SCH (08:18)
[2021-03-05] MEDS: metroNIDAZOLE 250 MG TABLET PO SCH ×2 (08:19→11:40)
--- NOTE | 2021-03-05 08:19 | DISCHARGE SUMMARY ---
Discharge Summary Admit Date: 03/02/21 Discharge Date: 03/05/21 Discharging Provider: Calvin Vences MD Code Status: Attempt Resuscitation Condition at Discharge: Good Discharge Disposition: 01 Home, Self Care - DIAGNOSES Admission Diagnoses: Term gestation Impaired glucose tolerance Discharge Diagnoses with Status of Each Condition: Term gestation: Delivered Impaired glucose tolerance: Delivered Prolapse umbilical cord: Status post primary low transverse section hemorrhage: Hemodynamically stable. Received 1 units PRBC, IV iron, B12. - HPI History of Present Illness: Subjective Patient reports she is doing well. Lochia appropriate. Denies heavy bleeding. Ambulating. Pelvic and abdominal pain well-controlled. Tolerating oral intake. Diet: Regular. Voiding without difficulty. Passing flatus. Denies BM. Patient is bonding with baby in room Breast feeding going well. Denies feeling lightheaded, dizzy or excessively fatigued. Objective General: Alert, oriented, no apparent distress. Cardiovascular: Regular rate. Regular rhythm. No murmur. Lungs: Clear to auscultation. Good air movement. No crackles or wheezes Abdomen: Uterus firm. Below umbilicus. Normal active bowel sounds. No guarding or rebound. Extremities: Normal pedal pulses. No edema. No cords. - HOSPITAL COURSE Hospital Course: Patient is a 30-year-old who presented at 39 weeks gestation for induction of labor. She had 6 doses of misoprostol followed by oxytocin. When she was 5 cm dilated, she was checked and a cord was palpated as a presenting part. At that point her water broke spontaneously and an umbilical cord prolapse was noted. Emergency section was called. She was put under general anesthesia for an urgent which was complicated by hemorrhage. Her course noted some lightheadedness and received 1 u nit of PRBCs. Hemoglobin went from 11.4-7.4 postoperative, and up to 7.9 after a unit of PRBCs. She also received IV iron and B12. On day 2 she was hemodynamically stable and discharged in good condition with her . - ALLERGIES Allergies/Adverse Reactions: Allergies Allergy/AdvReac Type Severity Reaction Status Date / Time No Known Drug Allergies Allergy Verified 01/19/17 13:41 - MEDICATIONS Home Medications: Ambulatory Orders Medication Instructions Recorded Confirmed Cyclobenzaprine [Flexeril] 10 mg PO TID PRN #20 tablet 01/19/17 Ibuprofen [Motrin] 400 mg PO Q6H PRN #20 tablet 01/19/17 Lidocaine Patch 5% [Lidoderm Patch] 1 each TOP DAILY PRN #10 patch 01/19/17 - LABS Result Diagrams: 03/04/21 17:59
[2021-03-05] MEDS: SIMETHICONE CHEW 80 MG TABLET PO PRN (08:20)
[2021-03-05 13:59] VITALS: BP 126/60
--- NOTE | 2021-03-05 18:59 | Labor Flowsheet ---
Labor Flowsheet Datetime Report Generated by CPN: 03/05/2021 18:59 Datetime: 03/05/2021 10:50 VITAL SIGNS NBP Sys/Roya/Mean (mmHg): 126 : 60 : 76 Pulse: 97 LaborFlag: Antepartum Datetime: 03/04/2021 17:20 SpO2 (%): 99 Datetime: 03/03/2021 19:34 Membranes Ruptured Date/Time: 03/03/2021 11:23 Datetime: 03/03/2021 16:54 Vaginal Exam Comments: CNM remains on bed elevating presenting part off cord. Datetime: 03/03/2021 16:53 UTERINE ACTIVITY Monitor Mode: External Frequency (min): 2-3 Quality: Moderate Duration (sec): 50-80 Pattern: Normal: <= 5 Contractions in 10 Minutes Resting Tone (Palpate): Relaxed ASSESSMENT A Monitor Mode: External US FHR Baseline Rate : 135 Variability: Moderate 6-25 bpm Accelerations: 15X15 Decelerations: Prolonged Category: Category II Datetime: 03/03/2021 16:50 Patient Position/Activity: HOB Lowered; Trendelenburg Datetime: 03/03/2021 16:49 MEDICATIONS Pitocin (milliunits): Discontinued Datetime: 03/03/2021 16:48 VAGINAL EXAM Dilatation (cm): 5.0 Exam by: CNM Tyson Communication Comments: open hearth melter called to bedside for cord prolapse, initiated OR team call-in fo r STAT C/S. Datetime: 03/03/2021 16:45 Patient Care Comments: CNM Tyson @ bedside Datetime: 03/03/2021 16:22 Antiemetics/Antacids: Zofran (mg) @ 4 IVP Datetime: 03/03/2021 15:09 COMMUNICATION Communication: Call/Page Placed to Provider Provider Notified (Name): A. Tyson CNM Notification Reason: Status Update Datetime: 03/03/2021 14:53 Effacement (%): 75 Station: -3 Vaginal Bleeding: Normal Show Cervix, Consistency: Soft Cervix, Position: Anterior Datetime: 03/03/2021 14:50 I/O Interventions: Durbin Cath Inserted Datetime: 03/03/2021 14:42 Antibiotics: Ampicillin IV 1 Gm Datetime: 03/03/2021 14:30 Contraction Comments: coupling noted Datetime: 03/03/2021 13:03 Epidural Procedure Other: Pump Started Datetime: 03/03/2021 12:48 Anesthesia Comments: negative test dose Datetime: 03/03/2021 12:47 Epidural Procedure: Test Dose Datetime: 03/03/2021 12:30 PATIENT CARE IV/Blood Work: IV Bolus Started PROCEDURE TIME OUT Procedure Verify: Correct Patient Identity; Accurate Procedure Consent Form; Agreement on Procedure to be Done; Correct Patient Position ANESTHESIA Anesthesia Plans: Epidural Epidural Positioning: Sitting Datetime: 03/03/2021 11:29 Membrane Status: Ruptured Membranes Rupture Method: Spontaneous Amniotic Fluid Color: Clear Amniotic Fluid Amount: Scant Nitrazine: Positive Membrane Comments: scant amount of fluid from vagina nitrazine positive, appears clear Datetime: 03/03/2021 11:00 Pitocin Checklist: At Least 1 Acceleration of 15 bpm x 15 Seconds in 30 Minutes or Adequate Variabi lity; No More than 1 Late Deceleration Occurred in Past 30 Minutes; No More than 2 Variable Decelerat ions > 60 Seconds in Duration and decreasing >60 bpm in 30 minutes; No More than 5 Uterine Contractio ns in 10 Minutes for any 20 Minute Interval; Uterus Palpates Soft between Contractions Datetime: 03/03/2021 09:10 Respirations: 17 Temperature (C): 36.7 Temperature Route: Oral Datetime: 03/03/2021 07:00 Oxygen Method: Room Air Datetime: 03/03/2021 06:40 Pain Presence: Intermittent Pain Type: Contraction Pain Location: Abdomen Pain Relief Measures: Comfort Measures Pain Coping: Talking Through Contractions Pain Assessment Comments: Pt states she is noticing contractions more but doesn't feel that they ar e painful Comfort Measures: Breathing/Relaxation Datetime: 03/03/2021 06:37 Comments: interrupted strip due to patient movement - pt walking around in room at this time Datetime: 03/03/2021 06:20 Cervical Ripening Agents: Cytotec @ Datetime: 03/03/2021 02:05 PAIN Pain Scale: 2 Datetime: 03/02/2021 22:34 Monitor Interventions for FHR: Ultrasound Adjusted Datetime: 03/02/2021 19:29 MATERNAL ASSESSMENT Level of Consciousness: Alert Headache: Denies Breath Sounds, Left: Clear and Equal Breath Sounds, Right: Clear and Equal Nausea/Vomiting: Denies RUQ Epigastric Pain: Denies Maternal Comments: tingling in hands Datetime: 03/02/2021 17:50 Stage of : Antepartum Datetime: 03/02/2021 17:00 Monitor Interventions for UA: Prentice Adjusted
== END 2021-03-05 15:35 | disposition home or self-care (01) | DRG 787 ==
LOC: WFO 07:33 → FBP 07:41 → WFO 09:16 → FBP 09:17
PROVIDERS: ADMIT Nurse Practitioner Obstetrics & Gynecology; ATTEND Obstetrics & Gynecology
PROC: 10D00Z1 Extraction of Products of Conception, Low, Open Approach (ICD-10-PCS; principal; 2021-03-02)
PROC: 3E033VJ Introduction of Other Hormone into Peripheral Vein, Percutaneous Approach (ICD-10-PCS; 2021-03-02)
PROC: 3E0P7VZ Introduction of Hormone into Female Reproductive, Via Natural or Artificial Opening (ICD-10-PCS; 2021-03-02)
PROC: 30233N1 Transfusion of Nonautologous Red Blood Cells into Peripheral Vein, Percutaneous Approach (ICD-10-PCS; 2021-03-04)
DX: O99.814 Abnormal glucose complicating childbirth (principal); O72.1 Other immediate postpartum hemorrhage; D62 Acute posthemorrhagic anemia; O69.0XX0 Labor and delivery complicated by prolapse of cord, not applicable or unspecified; O99.824 Streptococcus B carrier state complicating childbirth; O90.81 Anemia of the puerperium; Z3A.39 39 weeks gestation of pregnancy; Z37.0 Single live birth; Z86.16 Personal history of COVID-19; Z83.3 Family history of diabetes mellitus
CPT/HCPCS: 36415; 74018; 85025; 86850; 86900; 86901; 86920; A9270; J0131; J1170; J2210; J2916; J7120; P9016

== ENCOUNTER 2022-11-19 18:05 | Emergency (ER) | payer BC ==
--- NOTE | 2022-11-19 18:22 | ED Physician Documentation ---
PD HPI LOWER EXT INJURY - Stated complaint Stated Complaint: L HIP AND BACK PX - Chief complaint Chief Complaint: Ext Problem - History obtained from History obtained from: Patient - Additional information Additional information: Remotely she had a femur fracture with intramedullary rissa in place. Earlier today she stepped out of the car and started to feel pain of the lateral hip on the left. It progressed throughout the day such that it is more severe but declines pain medication. No recent injury per se. Denies weakness, numbness, tingling of the lower extremities, saddle urinary area or incontinence. PD PAST MEDICAL HISTORY - Past Medical History Cardiovascular: None Respiratory: None - Past Surgical History Past Surgical History: Yes /JIG BORER: Dilation and currettage - Present Medications Home Medications: Ambulatory Orders Medication Instructions Recorded Confirmed Cyclobenzaprine [Flexeril] 10 mg PO TID PRN #20 tablet 01/19/17 Ibuprofen [Motrin] 400 mg PO Q6H PRN #20 tablet 01/19/17 Lidocaine Patch 5% [Lidoderm Patch] 1 each TOP DAILY PRN #10 patch 01/19/17 Acetaminophen [Acetaminophen Extra 1,000 mg PO Q8H PRN #60 tablet 03/05/21 Strength] Docusate Sodium 100Mg Capsule 100 - 200 mg PO BID PRN #60 cap 03/05/21 [Colace 100Mg Capsule] Ibuprofen [Motrin] 600 mg PO Q6H PRN #30 tab 03/05/21 oxyCODONE [Roxicodone] 2.5 - 5 mg PO Q4H PRN #24 tablet 03/05/21 - Allergies Allergies/Adverse Reactions: Allergies Allergy/AdvReac Type Severity Reaction Status Date / Time No Known Drug Allergies Allergy Verified 11/19/22 18:18 - Social History Does the pt smoke?: No Smoking Status: Never smoker Does the pt drink ETOH?: No Does the pt have substance abuse?: No - Immunizations Immunizations are current?: Yes - POLST Patient has POLST: No PD ED PE NORMAL - Vitals Vital signs reviewed: Yes - General General: Alert and oriented X 3, No acute distress - Abdomen Abdomen: Normal bowel sounds, Soft, Non tender - Derm Derm: Normal color, Warm and dry - Extremities Extremities: Other (Focally tender over the greater trochanter of the left hip. Painless internal and external rotation of the hip itself though. Mild tenderness of the sciatic notch.) - Neuro Neuro: Alert and oriented X 3, Normal speech, Other (The patient has equal and normal Achilles and patellar reflexes bilaterally. Normal sensation in all areas of the legs. Patient denies saddle anesthesia. Normal strength in flexion-extension at the ankles, knees, and flexion of the hips.) Results - Vitals Vitals: Vital Signs - 24 hr 11/19/22 18:13 Temperature 36.8 C Heart Rate 84 Respiratory 20 Rate Blood Pressure 138/87 H O2 Saturation 99 Oxygen O2 Source Room air - Rads (name of study) Left femur x-ray showing healed femur fracture with intact hardware. Relevant Findings:: Final report received, EMP independent interpretation of test PD Medical Decision Making - ED course ED course: 32-year-old woman with acute pain over the lateral left hip where she has had a medullary rissa of a remote femur fracture. Seeming like trochanteric bursitis or IT band syndrome. Discussed stretching and follow-up. Departure - Departure Disposition: 01 Home, Self Care Clinical Impression: Trochanteric bursitis of left hip Condition: Good Record reviewed to determine appropriate education?: Yes Instructions: Trochanteric Bursitis, Iliotibial Band Stretch Comments: As discussed, this seems like either trochanteric bursitis or iliotibial band syndrome. Do the stretching as shown and take ibuprofen as needed for the pain. You can also do ice and heat alternating. Generally rest with regard to the lower extremities as far as exercise over the next few days. Follow-up with your primary next week if not improved with consideration for physical therapy referral at that time. Forms: PCP List
--- NOTE | 2022-11-19 19:57 | XRAY Report ---
PROCEDURE: Femur 2V LT INDICATIONS: hip/femur pain TECHNIQUE: 2 views of the femur were acquired. COMPARISON: None. FINDINGS: Bones: There are no visible acute fractures. An intramedullary femoral rissa is in place. The proximal and distal screws and rissa itself. Intact without lucency to suggest hardware failure. There is a def ormity of the mid femoral diaphysis of remote fracture with heterotopic ossification and prominent go rrounding callus. The hip and knee joint appear grossly intact. Soft tissues: There is a small ossification, probably chronic just superior to the greater trochante r, likely due to remote rissa placement no other suspicious calcifications. IMPRESSION: 1. No visible acute fracture. 2. No evidence of hardware failure. 3. Evidence of remote mid femoral fracture. Reviewed by: Radha Turner MD on 11/19/2022 7:55 PM PDT Approved by: Radha Turner MD on 11/19/2022 7:55 PM PDT Station ID: [id number]
[2022-11-19 20:24] VITALS: BP 118/82; O2SAT 100
== END 2022-11-19 20:18 | disposition home or self-care (01) ==
LOC: ED 18:05
DX: M70.62 Trochanteric bursitis, left hip (principal)
CPT/HCPCS: 99283

== ENCOUNTER 2022-11-20 10:49 | Outpatient (CLI) | payer BC ==
[2022-11-20 17:46] LABS: BASOPHILS % (AUTO) 0.5 %; EOSINOPHILS # (AUTO) 0.1 10^3/uL (0.0-0.7); EOSINOPHILS % (AUTO) 2.3 %; HCT - HEMATOCRIT 40.8 % (37.0-47.0); LYMPHOCYTES # (AUTO) 1.6 10^3/uL (1.5-3.5); MEAN CORPUSCULAR HGB CONC 31.9 g/dL (32.0-36.0); MEAN CORPUSCULAR VOLUME 91.1 fL (81.0-99.0); MEAN PLATELET VOLUME 10.5 fL (7.9-10.8); MONOCYTES # (AUTO) 0.4 10^3/uL (0.0-1.0); MONOCYTES % (AUTO) 7.2 %; NEUTROPHILS # (AUTO) 3.8 10^3/uL (1.5-6.6); NEUTROPHILS % (AUTO) 62.8 %; PLT - PLATELET COUNT 196 10^3/uL (130-450); RED BLOOD COUNT 4.48 10^6/uL (4.20-5.40); RED CELL DISTRIBUTION WIDTH 13.2 % (12.0-15.0); WHITE BLOOD COUNT 6.1 x10^3/uL (4.8-10.8)
[2022-11-20 17:48] LABS: ALBUMIN 4.2 g/dL (3.2-5.5); ALBUMIN/GLOBULIN RATIO 1.6 (1.0-2.2); BILIRUBIN,TOTAL 0.3 mg/dL (0.2-1.0); CALCIUM 9.6 mg/dL (8.5-10.3); POTASSIUM 4.2 mmol/L (3.5-4.5); TOTAL PROTEIN 6.8 g/dL (6.4-8.9)
== END 2022-11-20 10:50 | disposition home or self-care (01) ==
LOC: LAB.N 10:49
PROVIDERS: ATTEND Physician Assistant
DX: G43.909 Migraine, unspecified, not intractable, without status migrainosus (principal)
CPT/HCPCS: 36415; 80053; 85025

== ENCOUNTER 2023-07-23 12:00 | Outpatient (CLI) | payer BC ==
--- NOTE | 2023-07-23 21:08 | XRAY Report ---
PROCEDURE: Chest 2V INDICATIONS: COUGH TECHNIQUE: 2 views of the chest were obtained. COMPARISON: None. FINDINGS: Surgical changes and devices: None. Lungs and pleura: No pleural effusions or pneumothorax. Lungs are clear. Pulmonary parenchyma is accentuated by low lung volumes Mediastinum: Mediastinal contours appear normal. Heart size is normal. Bones and chest wall: No suspicious bony lesions. Overlying soft tissues appear unremarkable. IMPRESSION: No acute cardio pulmonic findings Reviewed by: Fred Bowles MD on 07/23/2023 8:07 PM [email or web address] Approved by: Fred Bowles MD on 07/23/2023 8:07 PM AKDT Station ID: [id number]
== END 2023-07-23 12:15 | disposition home or self-care (01) ==
LOC: DI.N 12:00
PROVIDERS: ATTEND Family Medicine
DX: R05.9 Cough, unspecified (principal)

== ENCOUNTER 2023-12-08 14:46 | Outpatient (CLI) | payer BC ==
[2023-12-08 18:07] LABS: BASOPHILS % (AUTO) 0.3 %; EOSINOPHILS % (AUTO) 0.6 %; HCT - HEMATOCRIT 39.4 % (37.0-47.0); LYMPHOCYTES # (AUTO) 1.6 10^3/uL (1.5-3.5); LYMPHOCYTES % (AUTO) 23.8 %; MEAN CORPUSCULAR HEMOGLOBIN 29.7 pg (27.0-31.0); MEAN PLATELET VOLUME 10.7 fL (7.9-10.8); MONOCYTES # (AUTO) 0.5 10^3/uL (0.0-1.0); MONOCYTES % (AUTO) 7.4 %; NEUTROPHILS # (AUTO) 4.6 10^3/uL (1.5-6.6); NEUTROPHILS % (AUTO) 67.8 %; PLT - PLATELET COUNT 208 10^3/uL (130-450); RED BLOOD COUNT 4.38 10^6/uL (4.20-5.40); RED CELL DISTRIBUTION WIDTH 12.7 % (12.0-15.0); WHITE BLOOD COUNT 6.8 x10^3/uL (4.8-10.8)
[2023-12-08 18:35] LABS: ALBUMIN 4.4 g/dL (3.2-5.5); ALBUMIN/GLOBULIN RATIO 1.7 (1.0-2.2); BILIRUBIN,TOTAL 0.4 mg/dL (0.2-1.0); CALCIUM 9.5 mg/dL (8.5-10.3); POTASSIUM 3.9 mmol/L (3.5-4.5)
[2023-12-08 18:43] LABS: FERRITIN 16.9 ng/mL (11.0-306.8)
== END 2023-12-08 14:47 | disposition home or self-care (01) ==
LOC: LAB.N 14:46
PROVIDERS: ATTEND Physician Assistant
DX: Z00.00 Encounter for general adult medical examination without abnormal findings (principal); G43.909 Migraine, unspecified, not intractable, without status migrainosus; Z86.2 Personal history of diseases of the blood and blood-forming organs and certain disorders involving the immune mechanism
CPT/HCPCS: 36415; 80053; 82728; 83540; 84466; 85025